=== PATIENT | female | born 1955 | race Caucasian/White ===

== ENCOUNTER 2018-02-23 18:09 | Emergency (ER) | payer SELFPAY ==
[~2018-02-23] VITALS: Ht 154.9 cm; Wt 71.2 kg
[2018-02-23 18:18] VITALS: BP 153/82
[2018-02-23] MEDS ORDERED: PHENAZOPYRIDINE 200 MG TABLET PO STA (18:41)
[2018-02-23] MEDS ORDERED: IBUPROFEN 800 MG TABLET PO STA (18:41)
[2018-02-23] MEDS ORDERED: IBUPROFEN 800 MG TABLET ONE (18:58)
[2018-02-23] MEDS ORDERED: PHENAZOPYRIDINE 200 MG TABLET ONE (18:58)
[2018-02-23 19:00] LABS: BASOPHILS # (AUTO) 0.04 x10^3/uL (0-0.1); BASOPHILS % (AUTO) 0 % (0-1); EOSINOPHILS # (AUTO) 0.04 x10^3/uL (0-0.4); EOSINOPHILS % (AUTO) 0 % (1-7); LYMPHOCYTES # (AUTO) 1.49 x10^3/uL (1-3.4); LYMPHOCYTES % (AUTO) 11 % (22-44); MD NO; MEAN CORPUSCULAR HEMOGLOBIN 30.8 pg (27.0-34.8); MEAN CORPUSCULAR HGB CONC 34.2 g/dL (32.4-35.8); MEAN CORPUSCULAR VOLUME 90.1 fL (80-100); MEAN PLATELET VOLUME 7.9 fL (7.4-10.4); MONOCYTES # (AUTO) 0.68 x10^3/uL (0.2-0.8); MONOCYTES % (AUTO) 5 % (2-9); NEUTROPHILS # (AUTO) 11.66 x10^3/uL (1.8-6.8); NEUTROPHILS % (AUTO) 84 % (42-75); PLATELET COUNT 244 x10^3/uL (130-400); RED BLOOD COUNT 5.03 x10^6/uL (3.82-5.3)
[2018-02-23] MEDS ORDERED: LEVO75TA PO (19:07)
[2018-02-23 19:12] LABS: ALANINE AMINOTRANSFERASE 82 U/L (12-78); ALBUMIN 4.4 g/dL (3.4-5.0); ANION GAP 7 mmol/L (5-15); CALCIUM 9.4 mg/dL (8.5-10.1); CHLORIDE 107 mmol/L (98-107); CREATININE 0.88 mg/dL (0.55-1.02)
[2018-02-23 19:15] LABS: ALKALINE PHOSPHATASE 99 U/L (45-117); BILIRUBIN,TOTAL 1.1 mg/dL (0.2-1.0)
[2018-02-23 19:18] LABS: MICROSCOPIC INDICATED
[2018-02-23 19:19] LABS: CULTURE INDICATED? YES
[2018-02-23] MEDS ORDERED: NITROFURANTOIN (MACROBID) 100 MG CAPSULE ONE (19:34)
[2018-02-23] MEDS ORDERED: ONDANSETRON ODT 4 MG ONE (19:37)
[2018-02-23] MEDS ORDERED: ONDANSETRON ODT 4 MG PO ONE (20:00)
[2018-02-23] MEDS ORDERED: NITROFURANTOIN (MACROBID) 100 MG CAPSULE PO ONE (20:00)
== END 2018-02-23 20:01 | disposition home or self-care (01) ==
LOC: ED 19:25
DX: N30.91 Cystitis, unspecified with hematuria (principal); R94.5 Abnormal results of liver function studies; E03.9 Hypothyroidism, unspecified
CPT/HCPCS: 36415; 80053; 81001; 85025; 87086; 99284; Q0162

== ENCOUNTER 2020-06-10 09:28 | Emergency (ER) | payer MEDICARE ==
[~2020-06-10] VITALS: Ht 154.9 cm; Wt 61.1 kg
[~2020-06-10 09:28] MED LIST: LEVO75TA PO
--- NOTE | 2020-06-10 09:58 | NUR ---
THIS IS A 65 YO F W/ C/O SUDDEN ONSET RT MID BACK/FLANK PAIN STARTING THIS MORNING. PT DENIES N/V/D/URINARY SYMPTOMS. PT ALLS, REZA GALO AT BEDSIDE FOR ED EVAL. PT AMBULATED TO THE BR W/ A STEADY GAIT PROVIDED URINE CUP FOR SPECIMEN.
[2020-06-10] MEDS ORDERED: ONDANSETRON 2MG/ML, 2ML IVPush ONE (10:00)
[2020-06-10] MEDS ORDERED: SODIUM CHLORIDE FLUSH 10ML SYR IVF ONE (10:00)
[2020-06-10] MEDS ORDERED: ONDANSETRON 2MG/ML, 2ML ONE (10:01)
[2020-06-10] MEDS ORDERED: MORPHINE SULFATE 4 MG/ML, 1ML ONE ×2 (10:01→11:03)
[2020-06-10] MEDS: MORPHINE SULFATE 4 MG/ML, 1ML IVPush PRN ×2 (10:12→11:05)
[2020-06-10 10:31] LABS: MICROSCOPIC AUTO
[2020-06-10 10:33] LABS: BASOPHILS # (AUTO) 0.02 x10^3/uL (0-0.1); BASOPHILS % (AUTO) 0 % (0-1); EOSINOPHILS # (AUTO) 0.01 x10^3/uL (0-0.4); EOSINOPHILS % (AUTO) 0 % (1-7); LYMPHOCYTES # (AUTO) 1.19 x10^3/uL (1-3.4); LYMPHOCYTES % (AUTO) 13 % (22-44); MD NO; MEAN CORPUSCULAR HEMOGLOBIN 31.2 pg (27.0-34.8); MEAN CORPUSCULAR HGB CONC 34.2 g/dL (32.4-35.8); MEAN PLATELET VOLUME 8.8 fL (7.4-10.4); MONOCYTES # (AUTO) 0.44 x10^3/uL (0.2-0.8); MONOCYTES % (AUTO) 5 % (2-9); NEUTROPHILS # (AUTO) 7.24 x10^3/uL (1.8-6.8); NEUTROPHILS % (AUTO) 81 % (42-75); PLATELET COUNT 219 x10^3/uL (130-400)
[2020-06-10 10:37] LABS: ALBUMIN 4.4 g/dL (3.4-5.0); ANION GAP 6 mmol/L (5-15); CALCIUM 9.3 mg/dL (8.5-10.1); CHLORIDE 106 mmol/L (98-107)
[2020-06-10 10:40] LABS: ALANINE AMINOTRANSFERASE 36 U/L (12-78); ALKALINE PHOSPHATASE 72 U/L (45-117); BILIRUBIN,TOTAL 1.1 mg/dL (0.2-1.0); TOTAL PROTEIN 7.5 g/dL (6.4-8.2)
--- NOTE | 2020-06-10 11:00 | NUR ---
PT AMBULATED TO THE BR W/ A STEADY GAIT.
[2020-06-10 12:13] VITALS: BP 127/70
--- NOTE | 2020-06-10 12:33 | NUR ---
PT ADVISED TO FIND RIDE HOME VS DRIVING HERSELF DUE TO MEDICATIONS RECEIVED TODAY. PT VERBALIZED UNDERSTANDING OF DC INSTRUCTIONS AND REPORTS SHE WILL FIND A RIDE OR UBER. PT AMBULATED TO THE DC DESK W/ A STEADY GAIT.
== END 2020-06-10 12:35 | disposition home or self-care (01) ==
LOC: ED 09:51
DX: M54.6 Pain in thoracic spine (principal); E03.9 Hypothyroidism, unspecified
CPT/HCPCS: 36415; 74176; 80053; 81001; 83690; 85025; 87086; 96374; 96375; 96376; 99284; J2270; J2405

== ENCOUNTER 2020-07-03 11:21 | Emergency (ER) | payer MEDICARE ==
[~2020-07-03] VITALS: Ht 154.9 cm; Wt 60.5 kg
[2020-07-03] MEDS ORDERED: KETOROLAC 30 MG/1 ML ONE (11:43)
[2020-07-03] MEDS ORDERED: DIAZEPAM 5 MG/ML, 2ML ONE (11:43)
[2020-07-03] MEDS ORDERED: MORPHINE SULFATE 4 MG/ML, 1ML ONE ×2 (11:56→13:30)
[2020-07-03] MEDS: MORPHINE SULFATE 4 MG/ML, 1ML IVPush PRN ×2 (11:59→13:34)
[2020-07-03] MEDS ORDERED: SODIUM CHLORIDE FLUSH 10ML SYR IVF ONE ×2 (12:00→12:30)
[2020-07-03] MEDS ORDERED: DIAZEPAM 5 MG/ML, 2ML IVPush ONE (12:00)
[2020-07-03] MEDS ORDERED: KETOROLAC 30 MG/1 ML IVPush ONE (12:00)
--- NOTE | 2020-07-03 12:07 | NUR ---
SPASMS SEEM TO HAVE STOPPED AT MORPHINE. WILL REASSESS.
--- NOTE | 2020-07-03 12:14 | NUR ---
PT TO HAVE CTA OF THE CHEST TO R/O AORTIC DISSECTION. PT REPORTS SPASMS HAVE STOPPED.
[2020-07-03 12:28] LABS: BASOPHILS # (AUTO) 0.04 x10^3/uL (0-0.1); BASOPHILS % (AUTO) 1 % (0-1); EOSINOPHILS # (AUTO) 0.04 x10^3/uL (0-0.4); EOSINOPHILS % (AUTO) 0 % (1-7); LYMPHOCYTES # (AUTO) 1.77 x10^3/uL (1-3.4); LYMPHOCYTES % (AUTO) 20 % (22-44); MD NO; MEAN CORPUSCULAR HEMOGLOBIN 30.3 pg (27.0-34.8); MEAN CORPUSCULAR VOLUME 91.7 fL (80-100); MEAN PLATELET VOLUME 8.1 fL (7.4-10.4); MONOCYTES # (AUTO) 0.46 x10^3/uL (0.2-0.8); MONOCYTES % (AUTO) 5 % (2-9); NEUTROPHILS # (AUTO) 6.71 x10^3/uL (1.8-6.8); NEUTROPHILS % (AUTO) 74 % (42-75); PLATELET COUNT 235 x10^3/uL (130-400); RED BLOOD COUNT 4.81 x10^6/uL (3.82-5.3); RED CELL DISTRIBUTION WIDTH 14.6 % (9.6-15.2)
[2020-07-03 12:44] LABS: ALANINE AMINOTRANSFERASE 36 U/L (12-78); ALBUMIN 4.5 g/dL (3.4-5.0); ANION GAP 4 mmol/L (5-15); CALCIUM 9.4 mg/dL (8.5-10.1); CHLORIDE 112 mmol/L (98-107); CREATININE 0.78 mg/dL (0.55-1.02)
[2020-07-03 12:45] LABS: ALKALINE PHOSPHATASE 79 U/L (45-117); BILIRUBIN,TOTAL 0.8 mg/dL (0.2-1.0); TOTAL PROTEIN 7.3 g/dL (6.4-8.2)
--- NOTE | 2020-07-03 13:06 | NUR ---
PT IN CT.
[2020-07-03] MEDS ORDERED: OMNIPAQUE 350 MG/ML, 75ML BOTTLE ONE (13:11)
--- NOTE | 2020-07-03 13:38 | NUR ---
PT REMEDICATED FOR PAIN. WAITING ON CTA RESULT. MEENA BAJWA AWARE OF PT BEING REMEDICATED FOR SPASMS/PAIN.
--- NOTE | 2020-07-03 13:45 | NUR ---
CHART UP FOR MD RECHECK. PT AWARE.
[2020-07-03 14:07] VITALS: BP 149/92
== END 2020-07-03 14:14 | disposition home or self-care (01) ==
LOC: ED 13:05
DX: S39.012A Strain of muscle, fascia and tendon of lower back, initial encounter (principal); S29.012A Strain of muscle and tendon of back wall of thorax, initial encounter; E03.9 Hypothyroidism, unspecified; Z87.891 Personal history of nicotine dependence; X58.XXXA Exposure to other specified factors, initial encounter; Y93.89 Activity, other specified; Y92.89 Other specified places as the place of occurrence of the external cause; Y99.8 Other external cause status
CPT/HCPCS: 36415; 71275; 80053; 83690; 85025; 96374; 96375; 96376; 99285; J1885; J2270; J3360; Q9967